=== PATIENT | female | born 1995 | race Caucasian/White ===

== ENCOUNTER 2017-03-14 22:38 | Observation (INO) | payer BC ==
[~2017-03-14] VITALS: Ht 167.6 cm; Wt 86.0 kg
[2017-03-14] MEDS ORDERED: SODIUM CHLORIDE 0.9% 1000ML 1,000 ML IV STA (23:07)
[2017-03-14] MEDS ORDERED: OPTIRAY 320 IV PRN (23:15)
[2017-03-14 23:19] LABS: BASO % 0.1 %; BASO ABS # 0.01 K/uL (0-0.2); COMPLETE YES; EOS % 0.4 %; HEMATOCRIT 40.4 % (37-47); IG% 0.3 %; LYMPH % 9.6 %; LYMPH ABS # 1.24 K/uL (1.2-3.4); MEAN CELL VOLUME 86.7 fL (80-100); MEAN CORPUSCULAR HEMOGLOBIN 30.7 pg (25-34); MEAN CORPUSCULAR HGB CONC 35.4 g/dl (32-36); MEAN PLATELET VOLUME 10.2 fL (7.4-10.4); NEUT % 82.6 %; PLATELET COUNT 315 K/uL (130-400); RED BLOOD COUNT 4.66 M/uL (4.2-5.4); WHITE BLOOD COUNT 12.95 K/uL (4.8-10.8)
[2017-03-14 23:20] LABS: URINE APPEARANCE CLEAR (CLEAR); URINE BILIRUBIN NEG (NEG); URINE COLOR YELLOW; URINE EPITHELIAL CELL AUTO >30 /lpf (0-5); URINE NITRITE NEG (NEG); URINE SPECIFIC GRAVITY 1.017 (1.000-1.030); UROBILINOGEN NEG (NEG); ZZUR CULT IF INDIC CLEAN CATCH YES
[2017-03-14 23:22] LABS: MANUAL MICROSCOPIC REQUIRED? NO; REVIEW REQ? YES
[2017-03-14 23:29] LABS: BUN/CREATININE RATIO 15.4 (10-20); CALCIUM 8.9 mg/dl (8.5-10.1); CREATININE 0.9 mg/dl (0.60-1.20); POTASSIUM 3.6 mmol/L (3.5-5.1)
[2017-03-14 23:32] LABS: ALB/GLOB RATIO 1.3 (0.9-2)
[2017-03-15] VITALS (9 sets, daily range): BP systolic 81–116; BP diastolic 59–76; PULSE 69–102; TEMP 36.4–36.9; O2SAT 94–99; Ht 167.6 cm; Wt 86.0 kg
[2017-03-15] MEDS ORDERED: SODIUM CHLORIDE 0.9% 1000ML 1,000 ML IV STA (00:56)
--- NOTE | 2017-03-15 00:59 | EMERGENCY ROOM VISIT NOTE ---
History First contact with patient: 22:45 Chief Complaint: ABDOMINAL PAIN Stated Complaint: ABDOMEN PAIN Nursing Triage Summary: Patient reports abdominal pain that started this morning and got worse tonight. Denies N/V/D. History of Present Illness The patient is a 21 year old female who presents to the Emergency Room with complaints of abdominal pain. The patient states that she had a dull, mild abdominal pain starting this warning. She reports that this evening, the pain became sharper and localized to the lower abdomen. She reports she has pain with moving and coughing. She rates her discomfort a 3/10. She denies any nausea/vomiting, urinary symptoms or changes in bowel movements. She denies any history of abdominal surgery. Review of Systems A complete 10 point review of systems was reviewed with the patient with pertinent positives and negatives as per history of present illness. All else were negative. Social History Smoking Status: Current Every Day Smoker Current/Historical Medications Scheduled PRN Oxycodone/Acetaminophen 5MG/325MG (Percocet 5MG/325MG), 1 TABLET PO Q6H PRN for Pain Physical Exam Vital Signs Date Time Temp Pulse Resp B/P (MAP) Pulse Ox O2 Delivery O2 Flow Rate FiO2 03/15/17 01:40 98 18 127/85 99 Room Air 03/15/17 01:04 82 18 116/85 97 03/14/17 22:42 37.6 134 18 126/77 98 Room Air Physical Exam VITALS: Vitals are noted on the nurse's note and reviewed by myself. Vital signs stable. GENERAL: This is a 21-year-old female, in no acute distress, nondiaphoretic, well-developed well-nourished. EARS: External auditory canals clear, tympanic membranes pearly de [place] ro[place] without erythema or effusion bilaterally. EYES: Pupils equal round and reactive to light and accommodation. Conjunctivae without injection, sclerae without icterus. MOUTH: Mucous membranes moist. Tonsils are not enlarged. Pharynx without erythema or exudate. NECK: Supple without nuchal rigidity. No lymphadenopathy. HEART: Regular rate and rhythm without murmurs gallops or rubs. LUNGS: Clear to auscultation bilaterally without wheezes, rales or rhonchi. ABDOMEN: Positive bowel sounds x 4. Soft, tenderness throughout the abdomen most pronounced in the suprapubic region and just to the right of midline. No guarding or rebound tenderness. NEURO: Patient was alert and oriented to person place and time. Medical Decision & Procedures ER Provider Diagnostic Interpretation: CT ABDOMEN & PELVIS: 8.6 mm prominent appendix with surrounding inflammatory changes consistent with acute appendicitis. Trace free fluid. No free air or abscess. Trace fluid in the pelvis may be physiologic. No obstructive uropathy. Liver, gallbladder, pancreas, spleen unremarkable. Radiologist: Fátima Kraft MD Laboratory Results 03/14/17 23:00 Red Blood Count 4.66, Mean Corpuscular Volume 86.7, Mean Corpuscular Hemoglobin 30.7, Mean Corpuscular Hemoglobin Concent 35.4, Mean Platelet Volume 10.2, Neutrophils (%) (Auto) 82.6, Lymphocytes (%) (Auto) 9.6, Monocytes (%) (Auto) 7.0, Eosinophils (%) (Auto) 0.4, Basophils (%) (Auto) 0.1, Neutrophils # (Auto) 10.70, Lymphocytes # (Auto) 1.24, Monocytes # (Auto) 0.91, Eosinophils # (Auto) 0.05, Basophils # (Auto) 0.01 03/14/17 23:00 Test 03/14/17 22:50 03/14/17 23:00 Urine Color YELLOW Urine Appearance CLEAR (CLEAR) Urine pH 6.0 (4.5-7.5) Urine Specific [place] 1.017 (1.000-1.030) Urine Protein NEG (NEG) Urine Glucose (UA) NEG (NEG) Urine Ketones TRACE (NEG) Urine Occult Blood NEG (NEG) Urine Nitrite NEG (NEG) Urine Bilirubin NEG (NEG) Urine Urobilinogen NEG (NEG) Urine Leukocyte Esterase SMALL (NEG) Urine WBC (Auto) 5-10 /hpf (0-5) Urine RBC (Auto) 0-4 /hpf (0-4) Urine Hyaline Casts (Auto) 1-5 /lpf (0-5) Urine Epithelial Cells (Auto) >30 /lpf (0-5) Urine Bacteria (Auto) 1+ (NEG) Urine Yeast (Auto) (NONE PRSENT) Urine Test NEG (NEG) White Blood Count 12.95 K/uL (4.8-10.8) Red Blood Count 4.66 M/uL (4.2-5.4) Hemoglobin 14.3 g/dL (12.0-16.0) Hematocrit 40.4 % (37-47) Mean Corpuscular Volume 86.7 fL (80-100) Mean Corpuscular Hemoglobin 30.7 pg (25-34) Mean Corpuscular Hemoglobin Concent 35.4 g/dl (32-36) Platelet Count 315 K/uL (130-400) Mean Platelet Volume 10.2 fL (7.4-10.4) Neutrophils (%) (Auto) 82.6 % Lymphocytes (%) (Auto) 9.6 % Monocytes (%) (Auto) 7.0 % Eosinophils (%) (Auto) 0.4 % Basophils (%) (Auto) 0.1 % Neutrophils # (Auto) 10.70 K/uL (1.4-6.5) Lymphocytes # (Auto) 1.24 K/uL (1.2-3.4) Monocytes # (Auto) 0.91 K/uL (0.11-0.59) Eosinophils # (Auto) 0.05 K/uL (0-0.5) Basophils # (Auto) 0.01 K/uL (0-0.2) RDW Standard Deviation 40.0 fL (36.4-46.3) RDW Coefficient of Variation 12.5 % (11.5-14.5) Immature Granulocyte % (Auto) 0.3 % Immature Granulocyte # (Auto) 0.04 K/uL (0.00-0.02) Anion Gap 8.0 mmol/L (3-11) Est Creatinine Clear Calc Drug Dose 111.0 ml/min Estimated GFR () 107.4 Estimated GFR (Non- 92.7 BUN/Creatinine Ratio 15.4 (10-20) Calcium Level 8.9 mg/dl (8.5-10.1) Total Bilirubin 0.4 mg/dl (0.2-1) Aspartate Amino Transf (AST/SGOT) 11 U/L (15-37) Alanine Aminotransferase (ALT/SGPT) 19 U/L (12-78) Alkaline Phosphatase 72 U/L (45-117) Total Protein 7.3 gm/dl (6.4-8.2) Albumin 4.1 gm/dl (3.4-5.0) Globulin 3.2 gm/dl (2.5-4.0) Albumin/Globulin Ratio 1.3 (0.9-2) Lipase 67 U/L (73-393) Medications Administered Medications (Trade) Dose Ordered Sig/Rafael Route Start Time Stop Time Status Last Admin Dose Admin Sodium Chloride 1,000 ml @ 999 mls/hr Q1H1M STAT IV 03/14/17 23:07 03/15/17 00:07 DC 03/14/17 23:18 999 MLS/HR Sodium Chloride 1,000 ml @ 999 mls/hr Q1H1M STAT IV 03/15/17 00:56 03/15/17 01:56 DC 03/15/17 01:04 999 MLS/HR Bupivacaine HCl/ Epinephrine Bitart (Sensorcaine/ Epinephrine 0.5% Mpf 1:200,000) 30 ml STK-MED ONCE .ROUTE 03/15/17 03:25 03/15/17 03:26 DC 03/15/17 04:26 20 ML Ondansetron HCl (Zofran Inj) 4 mg ONE PRN IV 03/15/17 03:45 03/15/17 05:05 DC 03/15/17 05:05 4 MG ED Course The patient was evaluated as above. Labs were drawn and IV access was obtained. Patient was medicated with [address] L normal saline solution. CT abdomen and pelvis was performed and read by fadi as above. Dr. Martínez of general surgery was consulted. He will evaluate the patient. All findings were discussed with the patient. She was taken to the OR for management. Medical Decision Differential diagnosis includes appendicitis, cholecystitis, mesenteric adenitis , gastroenteritis, ovarian cyst, ovarian torsion, ectopic , urinary tract infection, among others. The patient is a 21-year-old female who presents today complaining of abdominal pain. The patient did have a low-grade fever on initial examination. Labs revealed a mild leukocytosis. Labs were otherwise unremarkable. Urinalysis was not suggestive of infection. Urine was negative. CT of the abdomen and pelvis was performed and read by staterik and showed findings consistent with acute appendicitis. General surgery was consulted and patient was taken to the OR for management. Medication Reconcilliation Current Medication List: was personally reviewed by me Blood Pressure Screening Patient's blood pressure: Normal blood pressure Impression Primary Impression: Acute appendicitis Departure Information Prescriptions Oxycodone/Acetaminophen 5MG/325MG (PERCOCET 5MG/325MG) Tab 1 TABLET PO Q6H Y for Pain, #30 TAB Prov: Daniel Martínez M.D. 03/15/17 Referrals [facility] (PCP) Patient Instructions [facility] Problem Qualifiers Primary Impression: Acute appendicitis
[2017-03-15] MEDS ORDERED: BUPIVACAINE/EPINEPHRINE 0.5% MPF 1:200,000 30 ML VIAL ONE (03:25)
[2017-03-15] MEDS ORDERED: LABETALOL HCL IV 5 MG/ML 20ML IV PRN (03:45)
[2017-03-15] MEDS ORDERED: PHENYLEPHRINE 100MCG/ML 5ML SYR IV PRN (03:45)
[2017-03-15] MEDS ORDERED: HYDROmorphone INJ 2 MG/ML SYR/VIAL IV PRN (03:45)
[2017-03-15] MEDS ORDERED: ATROPINE SULFATE 0.1 MG/ML 5ML SYR IV PRN (03:45)
[2017-03-15] MEDS ORDERED: NALOXONE HCL 0.4 MG/1 ML VIAL/CARP IV PRN (03:45)
[2017-03-15] MEDS ORDERED: EpHEDrine SULFATE INJ 50 MG/ML AMP IV PRN (03:45)
[2017-03-15] MEDS ORDERED: FLUMAZENIL 0.1 MG/1 ML 10 ML VIAL IV PRN (03:45)
[2017-03-15] MEDS ORDERED: MEPERIDINE HCL 25 MG/ML CARP IV PRN (03:45)
[2017-03-15] MEDS ORDERED: ONDANSETRON INJ 2 MG/ML 2 ML VIAL IV PRN ×2 (03:45→04:00)
[2017-03-15] MEDS ORDERED: FENTANYL CITRATE INJ 50 MCG/1 ML 2 ML VIAL IV PRN (03:45)
--- NOTE | 2017-03-15 03:48 | History and Physical ---
History & Physical Date Mar 15, 2017. Chief Complaint abdominal pain History of Present Illness The patient is a 21 year old female with acute appendicitis. She presents to the Emergency Room with complaints of abdominal pain since last night. The patient states that she had a dull, mild abdominal pain which subsequently became sharper and localized to the right lower abdomen. She reports she has pain with moving and coughing. She rates her discomfort a 3/10. She denies any nausea/vomiting, urinary symptoms or changes in bowel movements. She denies any history of abdominal surgery. Past Medical/Surgical History PMHx -negative PSHx -negative Additional History Hepatic Disease: No Endocrine Disorder: No Kidney Disease: No Hypertension: No Heart Disease: No Bleeding Tendencies: No Infectious Diseases: No Allergies Coded Allergies: No Known Allergies (Unverified , 03/14/17) Home Medications No Active Prescriptions or Reported Meds Physical Examination Skin: warm/dry, no rash Eyes: normal inspection, EOMI, sclerae normal ENT: normal ENT inspection Head: normocephalic, atraumatic Neck: supple, no adenopathy, trachea midline Respiratory/Chest: lungs clear, normal breath sounds, no respiratory distress Cardiovascular: regular rate, rhythm, no edema, no murmur Abdomen / GI: normal bowel sounds, + pertinent finding (RLQ tenderness, guarding, no rebound) Back: normal inspection Extremities: normal inspection Genitourinary - Female: external genitalia normal Neurologic/Psych: no motor/sensory deficits, alert, normal reflexes, oriented x 3 Addiitonal Comments: CT scan with acute appendicitis Diagnosis Acute appendicitis ASA Classification: ASA Class II Plan of Treatment -IVF -IV bax -to OR for lap appendectomy
[2017-03-15] MEDS ORDERED: OXYC-57 PO (03:52)
[2017-03-15] MEDS ORDERED: FENTANYL CITRATE INJ 50 MCG/1 ML 2 ML VIAL ONE ×2 (03:52→04:42)
--- NOTE | 2017-03-15 03:57 | Discharge Instructions ---
Discharge Instructions Date of Service Mar 15, 2017. Admission Reason for Admission: Abdomen Pain Discharge Discharge Diagnosis / Problem: acute appendicitis Discharge Goals Goal(s): Therapeutic intervention Activity Recommendations Activity Limitations: per Instructions/Follow-up section Lifting Limitations: no more than 25 pounds Exercise/Sports Limitations: as tolerated May Resume Sexual Activity: when tolerated Shower/Bathe: tomorrow (tomorrow afternoon) Driving or Machine Use: resume 3 days after discharge (as long as not taking narcotics) . Instructions / Follow-Up Instructions / Follow-Up Mauricio; 2 weeks; [phone] Current Hospital Diet Patient's current hospital diet: Discharge Diet Recommended Diet: Regular Diet Pending Studies Studies pending at discharge: no Work Instructions Return To Work: after follow-up Lifting Limitations: no more than 20 pounds School Instructions Return To School: 2 days Additional Instructions: return on light duty without lifting or strenuous activity Medical Emergencies . Who to Call and When: Medical Emergencies: If at any time you feel your situation is an emergency, please call 911 immediately. . Non-Emergent Contact Non-Emergency issues call your: Primary Care Provider, Surgeon Call Non-Emergent contact if: temperature is above 101.5, your pain is not controlled, your pain is worsening, your pain is unusual for you, your pain is concerning you, wound has increased drainage, wound has increased redness, wound has increased pain, you have any medication questions . "Provider Documentation" section prepared by Daniel Martínez. . VTE Core Measure Inpt VTE Proph given/why not?: SCD's [place] Drug Monitoring Program Search Results: patient reviewed within database, no issues identified
[2017-03-15] MEDS ORDERED: MoRPHine SULFATE 2 MG/ML CARP IV PRN (04:00)
[2017-03-15] MEDS ORDERED: ALUMINUM/MAGNESIUM/SIMETH (MAALOX MAX) 30 ML UDC PO PRN (04:00)
[2017-03-15] MEDS ORDERED: OXYCODONE/ACETAMINOPHEN 5-325 TAB PO PRN (04:00)
[2017-03-15] MEDS ORDERED: IBUPROFEN 600 MG TAB PO PRN (04:00)
[2017-03-15] MEDS ORDERED: ACETAMINOPHEN 325 MG TAB PO PRN (04:00)
[2017-03-15] MEDS ORDERED: ROCURONIUM BROMID 50MG/5ML SYR ONE (04:07)
[2017-03-15] MEDS ORDERED: ONDANSETRON INJ 2 MG/ML 2 ML VIAL ONE (04:17)
[2017-03-15] MEDS ORDERED: SUCCINYLCHOLINE CHLORIDE 20 MG/ML 10 ML VIAL IV ONE (04:17)
[2017-03-15] MEDS ORDERED: ROCURONIUM BROMIDE 10 MG/ML 5 ML VIAL IV ONE (04:17)
[2017-03-15] MEDS ORDERED: DEXAMETHASONE SOD INJ 4 MG/ML VIAL ONE (04:17)
[2017-03-15] MEDS ORDERED: CEFOXITIN SOD 1 GM VIAL ONE (04:17)
[2017-03-15] MEDS ORDERED: GLYCOPYRROLATE INJ 0.2 MG/ML VIAL ONE (04:18)
[2017-03-15] MEDS ORDERED: LIDOCAINE HCL 2% 2 ML VIAL (20MG/ML) ONE (04:18)
[2017-03-15] MEDS ORDERED: NEOSTIGMINE METHYLSULFATE 5 MG/5 ML SYR ONE (04:18)
[2017-03-15] MEDS ORDERED: PROPOFOL IV EMULSION 10 MG/ML 20 ML VIAL IV ONE (04:18)
[2017-03-15] MEDS ORDERED: KETOROLAC TROMETHAMINE 30 MG/ML VIAL ONE (04:29)
--- NOTE | 2017-03-15 04:39 | [facility] Post Operative Brief Note ---
Immediate Operative Summary Operative Date Mar 15, 2017. Pre-Operative Diagnosis Acute appendicitis Post-Operative Diagnosis Same Procedure(s) Performed Laparoscopic appendectomy Surgeon Dr Martínez Data Conversion Analyst Surgeon(s) none Estimated Blood Loss 10ML Findings acute inflammatory changes; turbid fluid in pelvis Specimens A. appendix Drains none Anesthesia GETA w/marcaine Complication(s) None Disposition Recovery Room / PACU
[2017-03-15] MEDS ORDERED: IV FLUIDS COMPLETED PRN (05:00)
--- NOTE | 2017-03-15 05:16 | Anesthesiology Progress Note ---
Anesthesia Post Op Note Date & Time Mar 15, 2017 at 05:16 Vital Signs Pain Intensity: 0 Vital Signs Past 12 Hours Date Time Temp Pulse Resp B/P (MAP) Pulse Ox O2 Delivery O2 Flow Rate FiO2 03/15/17 05:05 76 16 115/71 96 Room Air 03/15/17 04:55 36.4 91 16 113/71 100 Mask 10 03/15/17 01:40 98 18 127/85 99 Room Air 03/15/17 01:04 82 18 116/85 97 03/14/17 22:42 37.6 134 18 126/77 98 Room Air Notes Mental Status: alert / awake / arousable, participated in evaluation Pt Amnestic to Procedure: Yes Nausea / Vomiting: adequately controlled Pain: adequately controlled Airway Patency, RR, SpO2: stable & adequate BP & HR: stable & adequate Hydration State: stable & adequate Anesthetic Complications: no major complications apparent
[2017-03-15] MEDS: LACTATED RINGER'S 1000ML 1,000 ML IV SCH ×2 (05:58→15:35)
[2017-03-15] MEDS ORDERED: CEFOXITIN IV 2,000 MG in DEXTROSE 5% 50ML 50 ML IV SCH ×2 (06:00→12:00)
[2017-03-15] MEDS ORDERED: MoRPHine SULFATE 4 MG/ML 1 ML CARP\\VIAL IV PRN ×2 (06:00)
--- NOTE | 2017-03-15 06:32 | OPERATIVE REPORT ---
DATE OF OPERATION: 03/15/2017 PREOPERATIVE DIAGNOSIS: Acute appendicitis. PROCEDURE PERFORMED: Laparoscopic appendectomy. SURGEON: Daniel Martínez MD ANESTHESIA: General endotracheal with 0.5% Marcaine with epinephrine local. ESTIMATED BLOOD LOSS: 10 mL. COMPLICATIONS: None. SPECIMENS: Appendix to pathology. INDICATION FOR PROCEDURE: This is a 21-year-old female who was seen through the ER with complaints of abdominal pain which localized to right lower quadrant. CT scan was done which shows acute appendicitis. We talked to her in details about the complications. DESCRIPTION OF PROCEDURE: The patient was taken to the OR and underwent excellent general endotracheal anesthesia. Abdomen was prepped and draped in normal sterile fashion. Transverse supraumbilical incision was made and using upper tension on the abdominal wall, a Veress needle was inserted. Good pneumoperitoneum achieved to 15 mmHg pressure. A visualized 11 port was then placed. Five suprapubic, 5 right upper quadrant, and 12 left lower quadrant ports were placed in normal fashion. The patient was placed in head down and rolled to the left. Her cecum was grasped with a Telma clamp and the appendix was identified, it was thickened and inflamed. There was some turbid fluid in the pelvis. Harmonic scalpel was used to take down the mesoappendix down to the base of the appendix. A ANNALISE stapler was then used to transect the appendix. Appendix was brought out with an Endobag and sent for pathologic evaluation. The abdomen was then reinsufflated and irrigated with 500 mL of saline. The fluid in the pelvis was removed. The ovaries and uterus were normal in appearance. Terminal ileum was also normal in appearance. Staple line was intact and showed no bleeding. The abdomen was then suctioned out to clear. Ports were then removed. Pneumoperitoneum was decompressed. 0 Vicryl was used to close the fascial defect at 11 and 12 incisions, 0.5% Marcaine with epinephrine local was used to create a local field block. 4-0 Vicryl was used to close the skin. Steri-Strips and benzoin were used to reinforce the incision. Sterile dressings were applied. The patient tolerated the procedure well with no complications and was sent to postop recovery area for a period of observation and be discharged up to her room once she meets criteria. I attest to the content of the Intraoperative Record and any orders documented therein. Any exception s are noted below.
--- NOTE | 2017-03-15 07:21 | DIAGNOSTIC IMAGING REPORT ---
ABD/PELVIS IV AND ORAL CONT HISTORY: 21 years-old Female abdominal pain, suprapubic and right sided acute right lower quadrant and suprapubic abdominal pain. Initial exam. COMPARISON: None available TECHNIQUE: Multiple axial CT images of the abdomen and pelvis were obtained following the intravenous administration of 92 mL Optiray 320. Oral contrast was also used. A dose lowering technique was used consistent with the principals of ALA. FINDINGS: Lung bases are generally clear. No pneumoperitoneum identified. Imaged inferior cardiac chambers are unremarkable. The liver, spleen, pancreas and adrenal glands are unremarkable. Bilateral kidneys are unremarkable. There is mild dilation of the distal right ureter, likely reactive secondary to the changes described below. There is mild distention of the urinary bladder lumen. Uterus and adnexa are unremarkable. There is mild amount of free fluid within the cul-de-sac with additional trace fluid along the bilateral lower paracolic gutters. The abdominal aorta is normal in both course and caliber. No bulky adenopathy identified. There is a small duodenal diverticulum. No bowel obstruction. The appendix is dilated measuring up to 12 mm transversely as seen on image 284 of series 3 and demonstrates mucosal hyperemia with mild surrounding inflammatory changes. No associated abscess or evidence of perforation. Soft tissues are unremarkable. There is a small fat filled periumbilical hernia, diastases 1.1 cm. Bones are intact. There is mild fragmentation of the pubic symphysis. Mild convex left curvature of the lower thoracic spine is incidentally noted. IMPRESSION: 1. Findings compatible with acute uncomplicated appendicitis. 2. Small fat filled periumbilical hernia. 3. Mild fragmentation of the pubic symphysis incidentally noted which could reflect osteitis pubis in the appropriate clinical setting. The above report was generated using voice recognition software. It may contain grammatical, syntax or spelling errors. Electronically signed by: Forrest Napier M.D. 03/15/2017 7:20 AM Dictated Date/Time: 03/15/2017 7:15 AM
[2017-03-15] MEDS ORDERED: TRAM-10 PO (16:03)
--- NOTE | 2017-03-15 16:24 | Progress Note ---
Progress Note Date of Service Mar 15, 2017. Progress Note Evaluated patient at 4:00 pm on 03/15/2017 POD # 0 s/p laparoscopic appendectomy Doing well, vitals stable, tolerated regular diet, minimal to no pain currently rating 1/10. Has not had any pain medication since surgery. No nausea or vomiting. Ready to go home Discharge instructions reviewed with patient and parents Rx for Tramadol written instead of Percocet Follow-up in surgical office in 2 weeks, office # given
--- NOTE | 2017-03-17 11:43 | Discharge Summary ---
Discharge Summary Dates Admission Date / Time: Mar 15, 2017 at 03:52 Discharge Date: Mar 15, 2017 Dispostion / Condition Discharge Disposition: Home Condition at Discharge: Good Principal Diagnosis (1) Acute appendicitis Problem List (1) Acute appendicitis Consultations / Procedures Consultations: None Procedures: Laparoscopic Appendectomy Pending Studies / Follow-Up Pathology- Appendix. Will be reviewed at follow-up visit Medication Reconciliation New Medications: Tramadol (Ultram) 50 Mg Tab 50 MG PO Q4H PRN for Pain, #30 TAB Admission HPI Per the Admitting provider: The patient is a 21 year old female with acute appendicitis. She presents to the Emergency Room with complaints of abdominal pain since last night. The patient states that she had a dull, mild abdominal pain which subsequently became sharper and localized to the right lower abdomen. She reports she has pain with moving and coughing. She rates her discomfort a 3/10. She denies any nausea/vomiting, urinary symptoms or changes in bowel movements. She denies any history of abdominal surgery. Hospital Course (1) Acute appendicitis Patient was taken to operating room for laparoscopic possible open appendectomy with Dr. Martínez. Patient tolerated procedure without any complications. She was transferred to recovery room in stable condition and then medical/surgical floor for post operative care. Post operative orders included PO Percocet, PO Ibuprofen and Tylenol, and breakthrough Morphine IV as needed for pain. She was started on 100 mls/hr of LR. Diet was advanced as tolerated. Activity as tolerated and SCDs. She had some lightheadedness upon standing in the morning of POD # 0 which resolved when sitting. She was evaluated after lunch time in which she tolerated regular diet and pain was minimal about 1/10 without needing pain medication. She was ready to go home and was feeling fine, dizziness resolved. Overall hospital course was uneventful and she was discharged home on POD # 0 in stable condition. Discharge Instructions as given to patient she was sent home with Rx for Tramadol instead of Percocet per patient/family request as her pain was minimal. [facility]
== END 2017-03-15 16:53 | disposition home or self-care (01) ==
LOC: C.EDB 22:40 → C.MSN 03-15 03:52 → ENRESERV 03-15 05:02
PROVIDERS: ADMIT Surgery; ATTEND Surgery
DX: K35.80 Unspecified acute appendicitis (principal); F17.200 Nicotine dependence, unspecified, uncomplicated

== ENCOUNTER 2017-04-10 01:40 | Emergency (ER) | payer BC ==
[~2017-04-10] VITALS: Ht 162.6 cm; Wt 86.0 kg
[~2017-04-10 01:40] MED LIST: TRAM-10 PO
[2017-04-10 01:49] VITALS: TEMP 36.5; Ht 162.6 cm; Wt 86.0 kg
[2017-04-10 02:37] LABS: BUN/CREATININE RATIO 14.9 (10-20); CALCIUM 8.7 mg/dl (8.5-10.1); CREATININE 0.87 mg/dl (0.60-1.20); POTASSIUM 3.2 mmol/L (3.5-5.1)
[2017-04-10 02:59] LABS: PREG INTERNAL NEGATIVE QC NEG CLEAR BACKGROUND; PREG INTERNAL POSITIVE QC POS CONTROL LINE
--- NOTE | 2017-04-10 03:33 | EMERGENCY ROOM VISIT NOTE ---
History First contact with patient: 01:49 Chief Complaint: ALCOHOL OVERDOSE Stated Complaint: etoh Nursing Triage Summary: Pt presents s for evaluation of etoh overdose. EMS called by friend because pt was vomitting. Pt states she was drinking blue wave, and smoked weed. History of Present Illness The patient is a 21 year old female who presents to the Emergency Room via EMS with concerns for alcohol intoxication. EMS was called by one of her friends because she was vomiting. She does admit to drinking alcohol and also smoking marijuana tonight. No report of any injuries or other competitions. Review of Systems Limited ROS due to intoxication. Social History Smoking Status: Never Smoker Current/Historical Medications No Active Prescriptions or Reported Meds Physical Exam Vital Signs Date Time Temp Pulse Resp B/P (MAP) Pulse Ox O2 Delivery O2 Flow Rate FiO2 04/10/17 10:22 104 16 120/79 99 04/10/17 09:02 98 16 124/81 100 04/10/17 06:33 117 18 106/62 96 Room Air 04/10/17 05:09 105 04/10/17 04:36 89 18 106/62 99 Room Air 04/10/17 02:25 Room Air 04/10/17 02:25 Room Air 04/10/17 02:17 95 04/10/17 01:59 95 04/10/17 01:49 36.5 67 18 110/69 100 Room Air Physical Exam VITALS - Vitals are noted on the nurse's note and reviewed by myself. Vital signs stable. GENERAL -sleeping but able to arouse and answers brief questions, in no acute distress, non-diaphoretic, well-developed well-nourished. The patient is visibly intoxicated. SKIN - The skin was without obvious lacerations, abrasions, or rashes. There is no tenting of the skin. Capillary reflex less than 2 seconds. HEENT - Normocephalic, atraumatic. PERRLA. EOMI. Conjunctiva with mild injection without icterus. Tympanic membranes without erythema or effusion bilaterally no hemotympanum. External auditory canals are clear. Nares patent bilaterally. No epistaxis. Oropharynx without erythema or exudate. Uvula midline. Oral mucosal moist. No lymphadenopathy. Neck is supple without cervical spine tenderness. HEART - Regular rate and rhythm without murmurs gallops or rubs. Peripheral pulses 2+. LUNGS - Clear to auscultation bilaterally without wheezes, rales or rhonchi. ABDOMEN - Positive bowel sounds x 4. Normal tympanic percussion. Soft, nontender, without masses or organomegaly. MUSCULOSKELETAL - Gross motor function of the upper and lower extremities intact. NEUROLOGIC - The patient is visibly intoxicated. Medical Decision & Procedures Laboratory Results 04/10/17 01:53 Test 04/10/17 01:53 Anion Gap 11.0 mmol/L (3-11) Est Creatinine Clear Calc Drug Dose 110.4 ml/min Estimated GFR () 111.9 Estimated GFR (Non- 96.6 BUN/Creatinine Ratio 14.9 (10-20) Calcium Level 8.7 mg/dl (8.5-10.1) Human Chorionic Gonadotropin, Qual NEG (NEG) Ethyl Alcohol mg/dL 128.0 mg/dl (0-3) Medications Administered Medications (Trade) Dose Ordered Sig/Rafael Route Start Time Stop Time Status Last Admin Dose Admin Ondansetron HCl (Zofran Odt) 4 mg ONE ONCE PO 04/10/17 06:45 04/10/17 06:46 DC 04/10/17 06:42 4 MG Ondansetron HCl (Zofran Odt) 4 mg ONE ONCE PO 04/10/17 09:45 04/10/17 09:46 DC 04/10/17 09:42 4 MG Medical Decision 128 In the evaluation and treatment of this patient, the following differential diagnoses were considered: Hypoglycemia, Barbiturate Toxicity, Benzodiazepine Toxicity, Depression and Suicidality, Diabetic Ketoacidosis, Encephalitis, Ethylene Glycol Toxicity, Meningitis, Metabolic Acidosis, Opioid Toxicity, CVA, TIA, Intracranial Abnormality, Acute Psychosis, Amongst Others. Patient was seen and evaluated by myself. Given the patient's presentation and exam findings, I did elect to perform the above-mentioned workup. The patient presents today visibly intoxicated. Aspiration precautions were instituted and the patient was placed in the prone position. The patient was placed on the child monitor and pulse oximetry was monitored throughout the entire stay in the emergency department. Labs were collected. Patient's medical alcohol was found to be elevated at [] mg/dL. After a lengthy stay in the Emergency Department the patient eventually was awoken and educated on today's visit, and was deemed appropriate for discharge. While reassessing the patient, she complained of nausea and began to vomit. She was given Zofran, and will continue to monitor. The patient was signed out to Krystin Munoz PA-C at 7:30 AM. Impression Primary Impression: Alcohol use with intoxication Departure Information Dispostion Home / Self-Care Condition GOOD Prescriptions No Active Prescriptions or Reported Meds Referrals [facility] (PCP) Patient Instructions ED Alcohol Intoxication, My [facility] Additional Instructions Avoid such excessive drinking in the future. Drink plenty of fluids today to stay hydrated. Follow-up with your PCP as needed.
[2017-04-10] MEDS ORDERED: ONDANSETRON 4MG OD TAB PO ONE ×2 (06:45→09:45)
[2017-04-10] MEDS ORDERED: PROCHLORPERAZINE MALEATE 5 MG TAB PO ONE (10:00)
[2017-04-10 10:22] VITALS: BP 120/79; PULSE 104; O2SAT 99
--- NOTE | 2017-04-10 10:29 | EMERGENCY ROOM VISIT NOTE ---
ED Visit Note This patient was signed out to me by Carolee Brannon nurse practitioner at the end of her shift. The patient's alcohol level was only 128. She was feeling nauseous and therefore Carolee had given her Zofran. The patient was reevaluated and was still nauseated therefore she was given additional Zofran 4 mg ODT. The patient vomited immediately after taking the Zofran. The patient states this is happened in the past with Zofran. Therefore the patient was given Compazine 5 mg by mouth. The patient refused the Compazine. The patient was discharged home in stable condition.
== END 2017-04-10 10:24 | disposition home or self-care (01) ==
LOC: EDBD 01:40 → C.EDB 01:41
DX: F10.929 Alcohol use, unspecified with intoxication, unspecified (principal); Y90.6 Blood alcohol level of 120-199 mg/100 ml

== ENCOUNTER 2017-10-18 18:55 | Emergency (ER) | payer BC ==
[~2017-10-18] VITALS: Ht 167.6 cm; Wt 79.5 kg
[2017-10-18 19:01] VITALS: TEMP 36.6; Ht 167.6 cm; Wt 79.5 kg
--- NOTE | 2017-10-18 19:18 | EMERGENCY ROOM VISIT NOTE ---
History Report prepared by Elmo: Goran Nina Under the Supervision of: Dr. Adolfo Santoyo D.O. First contact with patient: 19:01 Chief Complaint: ALLERGIC REACTION Stated Complaint: ALLERGIC REACTION TO SOY History of Present Illness The patient is a 22 year old female who presents to the Emergency Room with complaints of welling and "burning" in her lips that began roughly 40 minutes ago. The patient states that she is allergic to Soy and had the wrong coffee given to her today. The coffee contained Soy. She started to feel the numbness and burning shortly after drinking the coffee. She did take 2 Benadryl and is now starting to feel better. 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 A total of 6 systems reviewed and were otherwise negative. Past Medical & Surgical Soy Allergy Family History Non-contributory Social History Smoking Status: Never Smoker Housing Status: lives with roommate Occupation Status: [employer] student Current/Historical Medications No Active Prescriptions or Reported Meds Allergies Coded Allergies: No Known Allergies (Unverified , 04/10/17) Physical Exam Vital Signs Date Time Temp Pulse Resp B/P (MAP) Pulse Ox O2 Delivery O2 Flow Rate FiO2 10/18/17 19:01 36.6 89 20 122/81 100 Room Air Physical Exam CONSTITUTIONAL/VITAL SIGNS: Reviewed / noted above. GENERAL: Non-toxic in appearance. INTEGUMENTARY: Warm, dry, and [place]. HEAD: Normocephalic. EYES: without scleral icterus or trauma. ENT/OROPHARYNX: clear and moist. LYMPHADENOPATHY/NECK: Is supple without lymphadenopathy or meningismus. RESPIRATORY: Lungs clear and equal. CARDIOVASCULAR: Regular rate and rhythm. GI/ABDOMEN: Soft and nontender. No organomegaly or pulsatile mass. No rebound or guarding. Normal bowel sounds. EXTREMITIES: Warm and well perfused. BACK: No CVA tenderness. NEUROLOGICAL: Intact without focal deficits. PSYCHIATRIC: normal affect. MUSCULOSKELETAL: Normally developed with good muscle tone. Medical Decision & Procedures ED Course 1905: Previous medical records were reviewed. The patient was evaluated in room B2. A complete history and physical examination was performed. After examination , the patient was safe to be discharged home. Medical Decision Differential diagnosis: Etiologies such as allergic reaction, anaphylaxis, urticaria, Dang-Dave syndrome, toxic epidermal necrolysis, erythema multiforme, cellulitis, as well as others were entertained. This is a 22-year-old female who presents to the ED stating that she received a delivered coffee and believes that it contained soy milk. The patient reports that she is allergic to soy and states that she felt that her lips were swelling. She denies any rashes or hives or shortness of breath. She took 2 Benadryl. She came in for evaluation. Her symptoms started 40 minutes ago. The patient's exam is normal. There is no obvious oral edema or lip edema. The oral mucosa is normal. There are no hives or rashes. The lungs are clear. The vital signs are normal. The patient is in no distress. After evaluating the patient, I felt she was stable for discharge. She will continue taking Benadryl as needed for symptoms. Impression Primary Impression: Allergic reaction Scribe Attestation The scribe's documentation has been prepared under my direction and personally reviewed by me in its entirety. I confirm that the note above accurately reflects all work, treatment, procedures, and medical decision making performed by me. Departure Information Dispostion Home / Self-Care Prescriptions No Active Prescriptions or Reported Meds Referrals No Doctor, Assigned (PCP) Patient Instructions My [facility]
[2017-10-18 19:20] VITALS: BP 122/77; PULSE 81; O2SAT 100
== END 2017-10-18 19:21 | disposition home or self-care (01) ==
LOC: C.EDB 18:56
DX: T78.40XA Allergy, unspecified, initial encounter (principal); X58.XXXA Exposure to other specified factors, initial encounter